=== PATIENT | male | born 1990 | race Two or more races ===

== ENCOUNTER 2017-07-25 00:53 | Emergency (ER) | payer SELFPAY ==
[~2017-07-25] VITALS: Ht 180.3 cm; Wt 72.6 kg
[2017-07-25 01:10] VITALS: BP 113/76
[2017-07-25 01:19] VITALS: BP 124/77
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
== END 2017-07-25 01:19 ==
LOC: EMR 01:09
DX: L30.9 Dermatitis, unspecified (principal); Z77.098 Contact with and (suspected) exposure to other hazardous, chiefly nonmedicinal, chemicals
CPT/HCPCS: 99282